=== PATIENT | female | born 1995 | race African-American/Black ===

== ENCOUNTER 2020-01-14 06:53 | Emergency (ER) | payer OTHER ==
[2020-01-14 07:25] VITALS: BP 116/60; PULSE 81; TEMP 98.7; BMI 30.2
--- NOTE | 2020-01-14 07:33 | PDOC ---
History of Present Illness - General Chief Complaint: Sore Throat Stated Complaint: SORE THROAT,STUFFY NOSE Time Seen by Provider: 01/14/20 07:32 History Source: Patient Exam Limitations: No Limitations - History of Present Illness Initial Comments: 01/14/20 07:40 24yF w PMHx sickle cell disease, CVA (R sided deficits, 2006) presenting w 3d sore throat, sneezing, nasal congestion. Not relieved w fluticasone spray and claritin. Denies fever, cough, n/v, chest pain, SOB Past History - Medical History Allergies/Adverse Reactions: Allergies Allergy/AdvReac Type Severity Reaction Status Date / Time No Known Allergies Allergy Verified 01/14/20 07:22 Home Medications: Ambulatory Orders Clopidogrel Bisulfate [Plavix] 75 mg PO DAILY 09/07/19 Aspirin [ASA -] 81 mg PO DAILY tab.chew 09/15/19 Anemia: Yes (sickle cell anemia, crisis) Cardiac Disorders: Yes ("LEAK[place] VALVE") CVA: Yes (STROKE 2006-right side weakness) COPD: No - Reproductive History Is Patient Now?: No - Immunization History Immunization Up to Date: Yes - Psycho-Social/Smoking History Smoking History: Never smoked Have you smoked in the past 12 months: No - Substance Abuse Hx (Audit-C & DAST Scrn) How often the patient has a drink containing alcohol: Never Score: In Men: 4 or > Positive; In Women: 3 or > Positive: 0 Screen Result (Pos requires Nsg. Audit-10AR): Negative In the last yr the pt used illegal drug/Rx for NonMed reason: No Score: Yes response is considered Positive: 0 Screen Result (Positive result requires Nsg. DAST-10): Negative Review of Systems - Review of Systems Constitutional: No: Chills, Fever HEENTM: Yes: Nose Congestion. No: Eye Pain Respiratory: No: Cough, Shortness of Breath Cardiac (ROS): No: Chest Pain, Palpitations ABD/GI: No: Constipated, Diarrhea, Nausea, Vomiting : No: Burning, Dysuria Musculoskeletal: No: Back Pain, Joint Pain Integumentary: No: Bruising, Flushing Neurological: No: Headache, Seizure Psychiatric: No: Anxiety, Depression Endocrine: No: Intolerance to Cold, Intolerance to Heat Hematologic/Lymphatic: No: Anemia, Blood Clots *Physical Exam - Vital Signs Last Vital Signs Temp Pulse Resp BP Pulse Ox 98.7 F 81 18 116/60 98 01/14/20 07:22 01/14/20 07:22 01/14/20 07:22 01/14/20 07:22 01/14/20 07:22 - Physical Exam General Appearance: Yes: Nourished, Appropriately Dressed, Mild Distress HEENT: positive: EOMI, JOAO, Normal Voice, Nasal Congestion, Hearing Grossly Normal. negative: Scleral Icterus (R), Scleral Icterus (L), Pharyngeal Erythema, Tonsillar Exudate, Tonsillar Erythema, TM Bulging, TM Dull, TM Erythema Neck: positive: Tender, Supple, Lymphadenopathy (R), Lymphadenopathy (L). negative: Rigid Respiratory/Chest: positive: Lungs Clear, Normal Breath Sounds. negative: Chest Tender, Respiratory Distress Cardiovascular: positive: Regular Rhythm, Regular Rate, S1, S2. negative: Edema, Murmur Gastrointestinal/Abdominal: positive: Normal Bowel Sounds, Flat, Soft. negative: Tender, Organomegaly Integumentary: positive: Normal Color, Warm. negative: Dry Neurologic: positive: Fully Oriented, Alert, Normal Mood/Affect, Normal Response, Responsive Medical Decision Making - Medical Decision Making 01/14/20 07:57 24yF w PMHx sickle cell disease, CVA (R sided deficits, 2005) presenting w 3d sore throat, sneezing, nasal congestion d/t viral pharyngitis vs covid. Strep neg, no sign of acute chest syndrome (clear lungs, no CP/SOB) Given tylenol DC home w PCP referral Discharge - Discharge Information Problems reviewed: Yes Clinical Impression/Diagnosis: Viral URI Condition: Good Disposition: HOME - Follow up/Referral Referrals: Trace Ceja MD [Staff Physician] - Franck Gaines MD [Staff Physician] - - Patient Discharge Instructions Patient Printed Discharge Instructions: DI for Viral Upper Respiratory Infection -- Adult Additional Instructions: You have a viral respiratory infection. Antibiotics do not kill viruses. You do not need antibiotics Drink lots of water Follow up with the referred primary care provider if your symptoms don't improve after 7 days - Post Discharge Activity
[2020-01-14] MEDS ORDERED: ACETAMINOPHEN 500 MG TABLET (FP) PO ONE (07:55)
[2020-01-14] MEDS ORDERED: ACETAMINOPHEN 325 MG TABLET (FP) ONE (07:59)
== END 2020-01-14 09:01 | disposition home or self-care (01) ==
LOC: JER 06:53
DX: J06.9 Acute upper respiratory infection, unspecified (principal)
CPT/HCPCS: 87070; 87077; 87880; 99283-25; U0003

== ENCOUNTER 2020-06-03 09:21 | Emergency (ER) | payer OTHER ==
[2020-06-03 09:29] VITALS: BP 113/67; PULSE 88; BMI 29.9
[2020-06-03 09:35] VITALS: TEMP 97.6
[2020-06-03] MEDS ORDERED: KETOROLAC TROMETHAMINE 30 MG/1 ML VIAL IM ONE (10:27)
[2020-06-03] MEDS ORDERED: LIDOCAINE 5% TOPICAL PATCH TP ONE (10:29)
[2020-06-03] MEDS ORDERED: CYCLOBENZAPRINE HCL 10 MG TABLET (FP) PO ONE (10:29)
[2020-06-03] MEDS ORDERED: ACETAMINOPHEN 500 MG TABLET (FP) PO ONE (10:50)
[2020-06-03] MEDS ORDERED: LIDOCAINE 5% TOPICAL PATCH ONE (11:06)
[2020-06-03] MEDS ORDERED: CYCLOBENZAPRINE HCL 10 MG TABLET (FP) ONE (11:06)
[2020-06-03] MEDS ORDERED: ACETAMINOPHEN 500 MG TABLET (FP) ONE (11:06)
[2020-06-03] MEDS ORDERED: LIDOCAINE PATCH REMOVAL MC ONE (22:00)
== END 2020-06-03 11:12 | disposition home or self-care (01) ==
LOC: JER 09:21 → JERFT 09:21
PROC: 3E0233Z Introduction of Anti-inflammatory into Muscle, Percutaneous Approach (ICD-10-PCS; principal; 2020-06-03)
DX: S30.0XXA Contusion of lower back and pelvis, initial encounter (principal)
CPT/HCPCS: 99284-25

== ENCOUNTER 2021-07-09 12:05 | Emergency (ER) | payer OTHER ==
[2021-07-09 12:32] VITALS: BP 119/76; PULSE 91; TEMP 98.6; BMI 33.3
[2021-07-09] MEDS ORDERED: SODIUM CHLORIDE 0.9% 500 ML INFUS.BAG IV ONE (15:32)
[2021-07-09] MEDS ORDERED: ONDANSETRON 4 MG/2 ML VIAL IVPUSH ONE (15:33)
[2021-07-09] MEDS ORDERED: ACETAMINOPHEN 1000 MG/100 ML BAG IVPB ONE ×2 (15:33→21:00)
[2021-07-09] MEDS ORDERED: ACETAMINOPHEN INJECTION 100 ML IVPB ONE ×2 (16:04→21:17)
[2021-07-09] MEDS ORDERED: ONDANSETRON 4 MG/2 ML VIAL ONE (16:04)
[2021-07-09 17:28] LABS: CHLORIDE 102 mmol/L (98-107); SODIUM 131 mmol/L (136-145)
[2021-07-09 17:30] LABS: ALBUMIN 4.1 g/dl (3.4-5.0); BLOOD UREA NITROGEN 5.1 mg/dL (7-18); CALCIUM 9.2 mg/dL (8.5-10.1); CO2 23 mmol/L (21-32); GLUCOSE,RANDOM 76 mg/dL (74-106)
[2021-07-09 17:32] LABS: CREATININE 0.6 mg/dL (0.55-1.3); SGOT/AST 138 U/L (15-37)
[2021-07-09 17:34] LABS: BILIRUBIN,TOTAL 0.8 mg/dL (0.2-1); TOT PROT 9.1 g/dl (6.4-8.2)
[2021-07-09 17:35] LABS: ALK PHOS 79 U/L (45-117)
[2021-07-09 17:54] LABS: ANION GAP 5 MMOL/L (8-16); LIPASE < 10 U/L (73-393); SGPT/ALT 38 U/L (13-61)
[2021-07-09 18:24] LABS: BASO % 0.5 % (0-2.0); EOS % 0.3 % (0-4.5); HEMATOCRIT 35.4 % (32.4-45.2); HEMOGLOBIN 12.2 GM/dL (10.7-15.3); LYMPH % 28.5 % (8-40); MCH 29.1 pg (25.7-33.7); MCHC 34.4 g/dl (32.0-36.0); MEAN CELL VOLUME 84.7 fl (80-96); MEAN PLT VOLUME 8.7 fl (7.5-11.1); MONO % 14.8 % (3.8-10.2); NEUT % 55.9 % (42.8-82.8); PLATELET COUNT 378 10^3/uL (134-434); RBC 4.18 M/mm3 (3.60-5.2); RDW 16.3 % (11.6-15.6); RETICULOCYTES 2.89 % (0.5-1.5); WHITE BLOOD COUNT 10.5 K/mm3 (4.0-10.0)
[2021-07-09 18:56] LABS: ALBUMIN 3.8 g/dl (3.4-5.0); BILIRUBIN,TOTAL 0.8 mg/dL (0.2-1); BLOOD UREA NITROGEN 4.5 mg/dL (7-18); CALCIUM 9.1 mg/dL (8.5-10.1); CREATININE 0.5 mg/dL (0.55-1.3); TOT PROT 7.6 g/dl (6.4-8.2)
[2021-07-09 19:01] LABS: URINE APPEARANCE CLEAR; URINE BILIRUBIN NEGATIVE (NEGATIVE); URINE COLOR YELLOW; URINE GLUCOSE (UA) NEGATIVE (NEGATIVE); URINE KETONE 1+ (NEGATIVE); URINE LEUK ESTERASE NEGATIVE (NEGATIVE); URINE NITRITE NEGATIVE (NEGATIVE); URINE PROTEIN NEGATIVE (NEGATIVE); URINE UROBILINOGEN 0.2 mg/dL (0.2-1.0)
== END 2021-07-10 00:39 | disposition home or self-care (01) ==
LOC: JER 12:05
PROC: 3E0333Z Introduction of Anti-inflammatory into Peripheral Vein, Percutaneous Approach (ICD-10-PCS; principal; 2021-07-09)
PROC: 3E0333Z Introduction of Anti-inflammatory into Peripheral Vein, Percutaneous Approach (ICD-10-PCS; 2021-07-09)
PROC: 3E033GC Introduction of Other Therapeutic Substance into Peripheral Vein, Percutaneous Approach (ICD-10-PCS; 2021-07-09)
DX: R19.7 Diarrhea, unspecified (principal); N83.201 Unspecified ovarian cyst, right side; N28.1 Cyst of kidney, acquired
CPT/HCPCS: 36415; 74177-TC; 76705-TC; 80053; 81003; 83690; 84703; 85025; 85045; 99285-25

== ENCOUNTER 2021-09-04 14:27 | Emergency (ER) | payer OTHER ==
[2021-09-04 14:58] VITALS: BP 118/66; PULSE 79; TEMP 97.8; BMI 33.9
[2021-09-04] MEDS ORDERED: IBUPROFEN 600 MG TABLET (FP) PO ONE ×2 (16:35→17:28)
== END 2021-09-04 18:09 | disposition home or self-care (01) ==
LOC: JERFT 14:27
DX: S63.501A Unspecified sprain of right wrist, initial encounter (principal); V78.4XXA Person boarding or alighting from bus injured in noncollision transport accident, initial encounter
CPT/HCPCS: 73090-TC-RT-FY; 73110-TC-RT-FY; 99284-25

== ENCOUNTER 2021-09-12 12:09 | Emergency (ER) | payer OTHER ==
[2021-09-12 12:14] VITALS: BP 118/53; PULSE 76; TEMP 97.9; BMI 33.9
[2021-09-12] MEDS ORDERED: KETOROLAC TROMETHAMINE 30 MG/1 ML VIAL IM ONE (13:10)
[2021-09-12] MEDS ORDERED: KETOROLAC TROMETHAMINE 30 MG/1 ML VIAL ONE (13:15)
== END 2021-09-12 14:03 | disposition home or self-care (01) ==
LOC: JERFT 12:09
PROC: 3E023GC Introduction of Other Therapeutic Substance into Muscle, Percutaneous Approach (ICD-10-PCS; principal; 2021-09-12)
DX: M79.671 Pain in right foot (principal)
CPT/HCPCS: 73630-TC-RT-FY; 99284-25

== ENCOUNTER 2021-11-25 13:41 | Emergency (ER) | payer OTHER ==
[2021-11-25 13:49] VITALS: BP 108/68; PULSE 67; TEMP 98; BMI 35.2
== END 2021-11-25 17:27 | disposition home or self-care (01) ==
LOC: JERFT 13:41
DX: R51.9 Headache, unspecified (principal)
CPT/HCPCS: 70450-TC; 99284-25

== ENCOUNTER 2022-11-16 14:24 | Emergency (ER) | payer OTHER ==
[2022-11-16 14:35] VITALS: RESP 18
[2022-11-16 14:43] VITALS: TEMP 98.4; BMI 35.2
[2022-11-16] MEDS ORDERED: ACETAMINOPHEN 1000 MG/100 ML BAG IVPB ONE (16:41)
[2022-11-16] MEDS ORDERED: LACTATED RINGERS SOLUTION 1000 ML INFUS.BAG IV ONE ×2 (16:41→18:57)
[2022-11-16] MEDS ORDERED: IBUPROFEN 400 MG TABLET (FP) PO ONE ×2 (16:41→17:34)
[2022-11-16] MEDS ORDERED: ACETAMINOPHEN 325 MG TABLET (FP) PO ONE (17:15)
[2022-11-16 17:16] LABS: PH,URINE 5.5 (5.0-8.0); URINE APPEARANCE CLEAR; URINE BILIRUBIN NEGATIVE (NEGATIVE); URINE COLOR YELLOW; URINE GLUCOSE (UA) NEGATIVE (NEGATIVE); URINE KETONE NEGATIVE (NEGATIVE); URINE LEUK ESTERASE NEGATIVE (NEGATIVE); URINE NITRITE NEGATIVE (NEGATIVE); URINE PROTEIN NEGATIVE (NEGATIVE); URINE UROBILINOGEN 0.2 mg/dL (0.2-1.0)
[2022-11-16 18:21] LABS: HEMATOCRIT 34.2 % (32.4-45.2); HEMOGLOBIN 11.4 GM/dL (10.7-15.3); MCH 27.8 pg (25.7-33.7); MCHC 33.3 g/dl (32.0-36.0); MEAN CELL VOLUME 83.3 fl (80-96); MEAN PLT VOLUME 7.9 fl (7.5-11.1); PLATELET COUNT 425 10^3/uL (134-434); RBC 4.11 M/mm3 (3.60-5.2); RDW 16.3 % (11.6-15.6); RETICULOCYTES 3.63 % (0.5-1.5); WHITE BLOOD COUNT 14.8 K/mm3 (4.0-10.0)
[2022-11-16 18:35] LABS: POTASSIUM 4.1 mmol/L (3.5-5.1)
[2022-11-16 18:37] LABS: CALCIUM 9.1 mg/dL (8.5-10.1)
[2022-11-16 18:38] LABS: ALBUMIN 3.6 g/dl (3.4-5.0); BLOOD UREA NITROGEN 10.3 mg/dL (7-18)
[2022-11-16 18:40] LABS: BILIRUBIN,DIRECT 0.2 mg/dL (0.0-0.2)
[2022-11-16 18:41] LABS: CREATININE 0.7 mg/dL (0.55-1.3)
[2022-11-16 18:42] LABS: BILIRUBIN,TOTAL 0.6 mg/dL (0.2-1); TOT PROT 7.8 g/dl (6.4-8.2)
[2022-11-16 18:46] LABS: ACTIVATED PTT 28.5 SECONDS (25.2-36.5); INR 1.11 (0.83-1.09); PROTHROMBIN TIME (PATIENT) 12.9 SEC (9.7-13.0)
[2022-11-16] MEDS ORDERED: morphine SULFATE 4 MG/ML VIAL ONE (18:51)
[2022-11-16] MEDS ORDERED: morphine SULFATE 4 MG/ML VIAL IVPUSH ONE (18:57)
[2022-11-16 19:59] LABS: ANISOCYTOSIS 2+; MACROCYTOSIS 1+; SICKELED CELLS 1+; TARGET CELLS 2+
[2022-11-16 20:41] VITALS: BP 108/53; PULSE 64
== END 2022-11-16 21:51 | disposition home or self-care (01) ==
LOC: JER 14:24
PROC: 3E033GC Introduction of Other Therapeutic Substance into Peripheral Vein, Percutaneous Approach (ICD-10-PCS; principal; 2022-11-16)
DX: R07.89 Other chest pain (principal); R06.9 Unspecified abnormalities of breathing; D57.219 Sickle-cell/Hb-C disease with crisis, unspecified; R09.81 Nasal congestion; R05.9 Cough, unspecified; R07.81 Pleurodynia; R10.9 Unspecified abdominal pain
CPT/HCPCS: 36415; 71046-TC-FY; 71275-TC; 80053; 81003; 82248; 83010; 83605; 83615; 84703; 85025; 85045; 85379; 85610; 85730; 86850; 86900; 86901; 93005; 93010; 99285-25

== ENCOUNTER 2022-11-27 09:50 | Inpatient (IN) | payer OTHER ==
[2022-11-27 10:04] VITALS: BMI 34.9
[2022-11-27] MEDS ORDERED: morphine CARPU-JECT 2 MG/1 ML DISP.SYRIN IVPUSH ONE ×2 (10:23→12:23)
[2022-11-27 10:50] LABS: HEMATOCRIT 33.8 % (32.4-45.2); HEMOGLOBIN 11.6 GM/dL (10.7-15.3); MCHC 34.3 g/dl (32.0-36.0); MEAN CELL VOLUME 81.6 fl (80-96); MEAN PLT VOLUME 7.3 fl (7.5-11.1); PLATELET COUNT 405 10^3/uL (134-434); RBC 4.14 M/mm3 (3.60-5.2); RDW 16.4 % (11.6-15.6); RETICULOCYTES 3.58 % (0.5-1.5); WHITE BLOOD COUNT 20.8 K/mm3 (4.0-10.0)
[2022-11-27 11:25] LABS: POTASSIUM 4.5 mmol/L (3.5-5.1)
[2022-11-27 11:27] LABS: CALCIUM 9.4 mg/dL (8.5-10.1)
[2022-11-27 11:28] LABS: ALBUMIN 3.9 g/dl (3.4-5.0); BLOOD UREA NITROGEN 7.6 mg/dL (7-18)
[2022-11-27 11:31] LABS: CREATININE 0.7 mg/dL (0.55-1.3)
[2022-11-27 11:32] LABS: BILIRUBIN,TOTAL 1.2 mg/dL (0.2-1); TOT PROT 8.4 g/dl (6.4-8.2)
[2022-11-27 11:38] LABS: ANISOCYTOSIS 0; MACROCYTOSIS 0
[2022-11-27] MEDS ORDERED: CEFTRIAXONE 1 GM in DEXTROSE 5%-WATER - 100 ML IVPB ONE (12:23)
[2022-11-27] MEDS ORDERED: AZITHROMYCIN IVPB 250 MG in DEXTROSE 5%-WATER - 250 ML IVPB ONE ×3 (12:23→17:00)
[2022-11-27] MEDS ORDERED: CEFTRIAXONE 1 GM/50 ML BAG ONE (12:30)
[2022-11-27] MEDS: SODIUM CHLORIDE 0.45% 1,000 ML IV SCH ×2 (12:41→14:41)
[2022-11-27] MEDS ORDERED: KETOROLAC TROMETHAMINE 30 MG/1 ML VIAL IVPUSH PRN (13:46)
[2022-11-27] MEDS ORDERED: ACETAMINOPHEN 1000 MG/100 ML BAG IVPB PRN (13:56)
[2022-11-27 15:22] LABS: BILIRUBIN,DIRECT 0.2 mg/dL (0.0-0.2)
[2022-11-28] MEDS: FOLIC ACID 1 MG TABLET (FP) PO SCH (09:25)
[2022-11-28] MEDS: AZITHROMYCIN 250 MG TABLET PO SCH (09:25)
[2022-11-28] MEDS: ASPIRIN 81 MG CHEWABLE TABLETS PO SCH (09:25)
[2022-11-28] MEDS: ENOXAPARIN NA (PORCINE) 40 MG/0.4 ML DISP.SYRIN SQ SCH (09:26)
[2022-11-28 09:29] LABS: BASO % 0.6 % (0-2.0); EOS % 1.8 % (0-4.5); LYMPH % 30.5 % (8-40); MCH 27.7 pg (25.7-33.7); MCHC 33.4 g/dl (32.0-36.0); MEAN CELL VOLUME 83.2 fl (80-96); MEAN PLT VOLUME 8.1 fl (7.5-11.1); MONO % 13.7 % (3.8-10.2); NEUT % 53.4 % (42.8-82.8); PLATELET COUNT 363 10^3/uL (134-434); RBC 3.97 M/mm3 (3.60-5.2); RDW 16.4 % (11.6-15.6); WHITE BLOOD COUNT 16.4 K/mm3 (4.0-10.0)
[2022-11-28] MEDS: CEFTRIAXONE 1 GM in DEXTROSE 5%-WATER - 50 ML IVPB SCH (09:39)
[2022-11-28 09:58] LABS: POTASSIUM 4.5 mmol/L (3.5-5.1)
[2022-11-28 10:01] LABS: ALBUMIN 3.4 g/dl (3.4-5.0); CALCIUM 9.2 mg/dL (8.5-10.1); MAGNESIUM 2.4 mg/dL (1.8-2.4)
[2022-11-28 10:02] LABS: BLOOD UREA NITROGEN 6.5 mg/dL (7-18)
[2022-11-28 10:04] LABS: CREATININE 0.6 mg/dL (0.55-1.3); PHOSPHOROUS 2.9 mg/dL (2.5-4.9)
[2022-11-28 10:06] LABS: BILIRUBIN,TOTAL 1.1 mg/dL (0.2-1); TOT PROT 7.9 g/dl (6.4-8.2)
[2022-11-28] MEDS: SODIUM CHLORIDE 0.45% 1,000 ML IV SCH (11:30)
[2022-11-28] MEDS: LIDOCAINE 5% TOPICAL PATCH TP SCH (14:16)
[2022-11-28] MEDS ORDERED: ACETAMINOPHEN 325 MG TABLET (FP) PO PRN (14:28)
[2022-11-28] MEDS: LIDOCAINE PATCH REMOVAL MC SCH (22:53)
[2022-11-29] MEDS: SODIUM CHLORIDE 1,000 ML IV SCH ×2 (09:12→22:15)
[2022-11-29] MEDS: ASPIRIN 81 MG CHEWABLE TABLETS PO SCH (09:13)
[2022-11-29] MEDS: FOLIC ACID 1 MG TABLET (FP) PO SCH (09:13)
[2022-11-29] MEDS: LIDOCAINE 5% TOPICAL PATCH TP SCH (09:13)
[2022-11-29] MEDS: CEFTRIAXONE 1 GM in DEXTROSE 5%-WATER - 50 ML IVPB SCH (09:49)
[2022-11-29] MEDS: ENOXAPARIN NA (PORCINE) 40 MG/0.4 ML DISP.SYRIN SQ SCH (09:50)
[2022-11-29] MEDS: AZITHROMYCIN 250 MG TABLET PO SCH (09:51)
[2022-11-29 12:30] LABS: HEMOGLOBIN 11.6 GM/dL (10.7-15.3); MCH 28.3 pg (25.7-33.7); MEAN CELL VOLUME 83.3 fl (80-96); MEAN PLT VOLUME 7.8 fl (7.5-11.1); PLATELET COUNT 388 10^3/uL (134-434); RBC 4.08 M/mm3 (3.60-5.2); RDW 16.1 % (11.6-15.6)
[2022-11-29 12:54] LABS: POTASSIUM 4.5 mmol/L (3.5-5.1)
[2022-11-29 12:57] LABS: ALBUMIN 3.5 g/dl (3.4-5.0)
[2022-11-29 12:58] LABS: BLOOD UREA NITROGEN 8.3 mg/dL (7-18)
[2022-11-29 13:01] LABS: BILIRUBIN,DIRECT 0.2 mg/dL (0.0-0.2); CREATININE 0.7 mg/dL (0.55-1.3)
[2022-11-29 13:02] LABS: BILIRUBIN,TOTAL 0.8 mg/dL (0.2-1); TOT PROT 8.4 g/dl (6.4-8.2)
[2022-11-29] MEDS: LIDOCAINE PATCH REMOVAL MC SCH (22:15)
[2022-11-30 09:06] LABS: HEMATOCRIT 33.4 % (32.4-45.2); HEMOGLOBIN 11.2 GM/dL (10.7-15.3); MCHC 33.6 g/dl (32.0-36.0); MEAN CELL VOLUME 83.3 fl (80-96); MEAN PLT VOLUME 8.1 fl (7.5-11.1); PLATELET COUNT 421 10^3/uL (134-434); RBC 4.01 M/mm3 (3.60-5.2); RDW 16.3 % (11.6-15.6); WHITE BLOOD COUNT 14.4 K/mm3 (4.0-10.0)
[2022-11-30] MEDS: AZITHROMYCIN 250 MG TABLET PO SCH (09:16)
[2022-11-30] MEDS: ASPIRIN 81 MG CHEWABLE TABLETS PO SCH (09:16)
[2022-11-30] MEDS: FOLIC ACID 1 MG TABLET (FP) PO SCH (09:16)
[2022-11-30] MEDS: CEFTRIAXONE 1 GM in DEXTROSE 5%-WATER - 50 ML IVPB SCH (09:17)
[2022-11-30] MEDS: SODIUM CHLORIDE 1,000 ML IV SCH (09:18)
[2022-11-30] MEDS: LIDOCAINE 5% TOPICAL PATCH TP SCH (09:18)
[2022-11-30] MEDS: ENOXAPARIN NA (PORCINE) 40 MG/0.4 ML DISP.SYRIN SQ SCH (09:18)
[2022-11-30 09:29] LABS: POTASSIUM 5.4 mmol/L (3.5-5.1)
[2022-11-30 09:35] LABS: ALBUMIN 3.3 g/dl (3.4-5.0); BLOOD UREA NITROGEN 7.5 mg/dL (7-18); CALCIUM 9.4 mg/dL (8.5-10.1)
[2022-11-30 09:38] LABS: CREATININE 0.6 mg/dL (0.55-1.3)
[2022-11-30 09:39] LABS: BILIRUBIN,TOTAL 0.9 mg/dL (0.2-1); TOT PROT 7.9 g/dl (6.4-8.2)
[2022-11-30] MEDS ORDERED: IBUPROFEN 400 MG TABLET (FP) PO PRN ×2 (12:00→13:41)
[2022-11-30] MEDS ORDERED: IBUPROFEN 400 MG TABLET (FP) PO ONE (14:35)
[2022-11-30] MEDS: LIDOCAINE PATCH REMOVAL MC SCH (22:57)
[2022-12-01] MEDS: ACETAMINOPHEN 325 MG TABLET (FP) PO PRN ×2 (02:37→12:23)
[2022-12-01 07:45] VITALS: RESP 18
[2022-12-01] MEDS: CEFTRIAXONE 1 GM in DEXTROSE 5%-WATER - 50 ML IVPB SCH (10:01)
[2022-12-01] MEDS: ASPIRIN 81 MG CHEWABLE TABLETS PO SCH (10:01)
[2022-12-01] MEDS: FOLIC ACID 1 MG TABLET (FP) PO SCH (10:01)
[2022-12-01] MEDS: AZITHROMYCIN 250 MG TABLET PO SCH (10:02)
[2022-12-01] MEDS: LIDOCAINE 5% TOPICAL PATCH TP SCH (10:03)
[2022-12-01] MEDS: ENOXAPARIN NA (PORCINE) 40 MG/0.4 ML DISP.SYRIN SQ SCH (10:04)
[2022-12-01 14:39] VITALS: BP 107/47; PULSE 88; TEMP 99
== END 2022-12-01 18:43 | disposition home or self-care (01) | DRG 720 ==
LOC: JER 09:50 → JERBED 12:50 → J6S 14:23
PROVIDERS: ADMIT Internal Medicine; ATTEND Internal Medicine
DX: A41.89 Other specified sepsis (principal); J18.9 Pneumonia, unspecified organism; I34.0 Nonrheumatic mitral (valve) insufficiency; D72.829 Elevated white blood cell count, unspecified; D57.1 Sickle-cell disease without crisis; M79.18 Myalgia, other site; J98.11 Atelectasis; D24.1 Benign neoplasm of right breast; R50.9 Fever, unspecified; R07.81 Pleurodynia; Z86.73 Personal history of transient ischemic attack (TIA), and cerebral infarction without residual deficits
CPT/HCPCS: 0241U-QW; 36415; 71045-TC-FY; 71250-TC; 80048; 80053; 80076; 82248; 83605; 83735; 84100; 84484; 84703; 85025; 85027; 85045; 87040; 87899; 93005; 93010; 99285-25

== ENCOUNTER 2023-01-02 13:17 | Emergency (ER) | payer OTHER ==
[2023-01-02 13:39] VITALS: BP 112/73; PULSE 58; RESP 18; TEMP 98.5; BMI 34.7
[2023-01-02] MEDS ORDERED: DIPHTH,PERTUSS(ACELL),TET 0.5 ML DISP.SYRIN IM ONE ×2 (14:10→14:12)
== END 2023-01-02 14:47 | disposition home or self-care (01) ==
LOC: JERFT 13:17
PROC: 0HQFXZZ Repair Right Hand Skin, External Approach (ICD-10-PCS; principal; 2023-01-02)
PROC: 3E0234Z Introduction of Serum, Toxoid and Vaccine into Muscle, Percutaneous Approach (ICD-10-PCS; 2023-01-02)
DX: S61.210A Laceration without foreign body of right index finger without damage to nail, initial encounter (principal); W26.8XXA Contact with other sharp object(s), not elsewhere classified, initial encounter; Y93.9 Activity, unspecified; Y92.015 Private garage of single-family (private) house as the place of occurrence of the external cause
CPT/HCPCS: 12001-25; 90471; 90715; 99283-25

== ENCOUNTER 2023-01-09 10:51 | Emergency (ER) | payer OTHER ==
[2023-01-09 11:01] VITALS: BP 114/64; PULSE 82; RESP 16; TEMP 98.9; BMI 34.9
== END 2023-01-09 12:04 | disposition home or self-care (01) ==
LOC: JERFT 10:51
DX: Z48.02 Encounter for removal of sutures (principal)
CPT/HCPCS: 99282-25

== ENCOUNTER 2024-07-30 10:38 | Emergency (ER) | payer OTHER ==
[2024-07-30 10:46] VITALS: BP 119/70; PULSE 76; RESP 18; TEMP 98; BMI 36.1
[2024-07-30] MEDS ORDERED: LIDOCAINE 4% PATCH TP ONE (11:12)
[2024-07-30] MEDS ORDERED: METHOCARBAMOL 500 MG TABLET ONE (11:12)
[2024-07-30] MEDS ORDERED: ACETAMINOPHEN 500 MG TABLET (FP) ONE (11:12)
[2024-07-30] MEDS: ACETAMINOPHEN 500 MG TABLET (FP) PO ONE (11:16)
[2024-07-30] MEDS: LIDOCAINE 4% PATCH TP ONE (11:16)
[2024-07-30] MEDS: METHOCARBAMOL 500 MG TABLET PO ONE (11:16)
== END 2024-07-30 12:01 | disposition home or self-care (01) ==
LOC: JERFT 10:38
DX: M54.6 Pain in thoracic spine (principal)
CPT/HCPCS: 72070-TC-FY; 99283-25